=== PATIENT | male | born 1970 ===

== ENCOUNTER 2025-03-25 13:25 | Outpatient (AMB) | payer OTHER, SELFPAY ==
--- NOTE | 2025-03-25 13:27 | MHC.OFFVIS ---
Vital Signs 03/25/25 13:30 Height 6 ft 2 in Weight 317 lb BMI 40.7 BP 140/70 H Blood Pressure Location Lt brachial Position Sitting Respiration 16 Pulse 83 Pulse Source Pulse Oximeter Pulse Oximetry (%) 96 Intake Visit Reasons: Low Back Pain/LE Neuropathy (NEVRO Consult) Buzzle Buffer Required: No Accompanied by: Life Partner Allergies No Known Allergies Allergy (Verified 03/25/25 13:32) HPI Comments Details: Wilian is very pleasant 54 years old gentleman who presents in my office with complains on severe axial pain in the lower back with minimal radiation of the pain in the to the left lower extremity. He was referred to our office by his primary care physician on sedation from [facility]. He researched SCS online and found that HFX is something he thinks would be appropriate to treat his pain. He is unable to sleep normally because of his pain he can not do activities of daily living he plus-minus able to take care of himself but he can not function normally. He is on permanent disability. He reports that prolonged sitting aggravate his pain. Prolonged standing also aggravates his pain. Bending forward aggravate his pain more than paining backwards. In fact flexing backwards alleviate his pain. Picking up objects from the floor greatly aggravate his pain. 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 He reports that problem started in 2010 and he received years of working on the hard floor. He reports that weather changes aggravate his pain and movements aggravate his pain as well. In terms of tissue damage he describes his pain as stabbing, lancinating, sharp, lacerating, pinching, crushing, hot burning, searing, tingling, stinging sensation. He was under care of [facility] in the past he received multiple injections nature of which was not available for me however patient stated that none of those injections helped his pain. He had an MRI long time ago of the lumbar spine this MRI not only not available for me today it is also irrelevant feet. He went for physical therapy in 2018 and he reported pain aggravation. He refused to go for physical therapy since then. His past medical history significant for headaches and pancreatitis history of his surgical history significant for varicocele, left knee surgery x2, hernia repair of the abdomen. Social history he is on permanent disability, he denies smoking cigarettes, he drinks beer socially he stopped heavy drinking 20 years ago. He denies caffeinated beverages he denies recreational drugs. Review of Systems Const All systems reviewed & are unremarkable except as noted in HPI and below ENT Reports Normal hearing present Neuro Reports Normal hearing present, Denies Abnormal speech present, Denies confusion and Denies Sensory deficit (Neuro) Psych Denies confusion Physical Exam Vital Signs: Last Vital Signs Pulse 83 03/25/25 13:30 Resp 16 03/25/25 13:30 BP 140/70 H 03/25/25 13:30 Pulse Ox 96 03/25/25 13:30 BMI result Body Mass Index 40.7 Const General: no acute distress; No confusion Nutritional Appearance: obese morbidly obese Orientation/consciousness: patient oriented x3 and No confusion Eyes General: appearance normal, both eyes and all related structures Pupils: Equal, round and reactive pupils present EOM: EOMs intact bilaterally Neck Neck: Yes full ROM Chest Chest palpation & inspection: normal inspection of the chest Resp Effort & Inspection: normal respiratory effort, able to speak in complete sentences, normal respiratory pattern, no audible wheezes and no cough Cardio Jugular venous distension: no JVD GI Inspection: Yes normal to inspection Back/Spine/Pelvis Other: Kal test is positive on the right, Stinchfield test is positive on the right, pelvic compression test is equivocal bilaterally and pelvic distraction test is also equivocal bilaterally, yeoman's test is positive on the right. Neuro General: patient oriented x3, gait normal and No confusion Cranial nerves: Yes CN's II-XII intact bilaterally, Yes Equal, round and reactive pupils present, Yes Normal hearing present and Yes Ability to bilaterally elevate shoulders present Speech: No Abnormal speech present Gait exam (Neuro): Normal gait present Motor exam (neuro): 5/5 motor strength present throughout Sensory Exam: No Sensory deficit (Neuro) Extrem General: No pedal edema Psych Speech and movement: Normal speech and movement present Affect: normal affect Attitude: cooperative Thought process: Normal thought process present Thought content: Normal thought content present Insight: Good insight present (Psych) Judgement: Good judgement present (Psych) Assessment & Plan Assessment & Plan (1) Vertebrogenic low back pain: Code(s): M54.51 - Vertebrogenic low back pain Category: Medical (2) Sacroiliitis: Code(s): M46.1 - Sacroiliitis, not elsewhere classified Category: Medical (3) Sacroiliac joint dysfunction of right side: Code(s): M53.3 - Sacrococcygeal disorders, not elsewhere classified Category: Medical (4) Chronic pain syndrome: Code(s): G89.4 - Chronic pain syndrome Category: Medical (5) Disc degeneration, lumbar: Code(s): M51.36 - Other intervertebral disc degeneration, lumbar region Category: Medical (6) Chronic right SI joint pain: Code(s): M53.3 - Sacrococcygeal disorders, not elsewhere classified; G89.29 - Other chronic pain Category: Medical Plan Before scheduling this patient for extensive process of spinal cord stimulator Ernie I would like to make sure that we are planning the right thing for the patient. I will schedule him for diagnostic right sacroiliac joint injection. I also will schedule him for the MRI of the lumbar spine to rule out vertebra genic low back pain. I will see this patient immediately after sacroiliac joint injection at this time hopefully MRI will be ready and we will discuss possibility of further treatment. He also will sign medical information release note and we will request from [facility] the numbers of the injections he received at this facility. I also will prescribe lorazepam for this patient to him to tolerate MRI better. It will be too pills of Ativan 1 mg each. Orders: Orders MR lumbar spine wo con Today M51.36 - Other intervertebral disc degeneration, lumbar region, M54.51 - Vertebrogenic low back pain Medications: New lorazepam (Ativan) Take 1 pill 90 minutes before the procedure and another pill 30 minutes before the procedure 1 mg PO BID PRN 2 tabs 0RF anxiety 1 day Coding Level of Care Code New Pt Level 3 (27828) Diagnoses Vertebrogenic low back pain M54.51 Sacroiliitis M46.1 Sacroiliac joint dysfunction of right side M53.3 Chronic pain syndrome G89.4 Disc degeneration, lumbar M51.36 Chronic right SI joint pain M53.3; G89.29
[2025-03-25 13:30] VITALS: BP 140/70; PULSE 83; RESP 16; O2SAT 96; BMI 40.7
== END 2025-03-25 14:02 | disposition home or self-care (01) ==
PROVIDERS: PCP Nurse Practitioner Family; Referring Provider Nurse Practitioner Family; Visit Provider Anesthesiology
DX: M54.51 Vertebrogenic low back pain (principal); M46.1 Sacroiliitis, not elsewhere classified; M53.3 Sacrococcygeal disorders, not elsewhere classified; G89.4 Chronic pain syndrome; M51.369 Other intervertebral disc degeneration, lumbar region without mention of lumbar back pain or lower extremity pain; G89.29 Other chronic pain
CPT/HCPCS: 99203